=== PATIENT | male | born 1970 | race Caucasian/White ===

== ENCOUNTER 2024-03-26 11:42 | Emergency (ER) | payer BC ==
[~2024-03-26] VITALS: Ht 165.1 cm; Wt 73.0 kg
[2024-03-26 12:05] VITALS: O2SAT 99
[2024-03-26] MEDS: TETANUS, DIPHTHERIA, PERTUSSIS VAC/PF 0.5ML (>10YR OLD) IM ONE (15:23)
[2024-03-26] MEDS: LIDOCAINE HCL/PF 1% 10 MG/ML 5ML VIAL INFIL ONE (15:46)
[2024-03-26] MEDS: BACITRACIN ZINC OINT UDPKT TOP ONE (15:46)
[2024-03-26 16:04] VITALS: BP 140/86; PULSE 98; RESP 18; TEMP 36.72516; O2SAT 100
== END 2024-03-26 16:06 | disposition home or self-care (01) ==
LOC: ER 12:44
DX: S61.412A Laceration without foreign body of left hand, initial encounter (principal); W26.0XXA Contact with knife, initial encounter; W45.8XXA Other foreign body or object entering through skin, initial encounter; Y93.89 Activity, other specified; Y92.89 Other specified places as the place of occurrence of the external cause; Y99.8 Other external cause status
CPT/HCPCS: 73130; 90715; 12002; 90471; 99283; J3490; Z7610